=== PATIENT | female | born 1960 | race African-American/Black ===

== ENCOUNTER 2025-02-12 13:22 | Emergency (ER) | payer SELFPAY ==
[~2025-02-12] VITALS: Ht 160 cm; Wt 59.0 kg
[2025-02-12 13:26] VITALS: BP 120/72; PULSE 76; RESP 18; TEMP 37.2; O2SAT 98
== END 2025-02-12 15:30 | disposition left against medical advice (07) ==
LOC: ER 13:22
DX: Z00.8 Encounter for other general examination (principal); Z53.21 Procedure and treatment not carried out due to patient leaving prior to being seen by health care provider